=== PATIENT | female | born 2005 ===

== ENCOUNTER → 2024-05-26 23:59 | Outpatient (BNV) | payer OTHER, SELFPAY ==
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
== END ==
PROVIDERS: PCP Nurse Practitioner Family; Visit Provider Nurse Practitioner Family
DX: F43.10 Post-traumatic stress disorder, unspecified (principal); F33.1 Major depressive disorder, recurrent, moderate; Z59.01 Sheltered homelessness; Z30.09 Encounter for other general counseling and advice on contraception; Z71.89 Other specified counseling; Z59.86 Financial insecurity; M54.50 Low back pain, unspecified; G89.29 Other chronic pain; F41.9 Anxiety disorder, unspecified
CPT/HCPCS: 99205

== ENCOUNTER → 2024-06-29 12:24 | Outpatient (BNV) | payer OTHER, SELFPAY ==
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
== END ==
PROVIDERS: PCP Nurse Practitioner Family; Visit Provider Nurse Practitioner Family
DX: Z30.09 Encounter for other general counseling and advice on contraception (principal); Z71.89 Other specified counseling; Z59.86 Financial insecurity; Z59.01 Sheltered homelessness
CPT/HCPCS: 99212